=== PATIENT | female | born 2000 | race Caucasian/White ===

== ENCOUNTER → 2022-12-23 | Outpatient (CLI) | payer OTHER ==
[~2022-12-23] MED LIST: ALBU90OI INH; AMOX50SU PO; ANTOXYBENA BOTHEARS; Amoxicillin500 MG PO; Augmentin 500-1 EACH PO; Crutch1 EACH MISC; DEXT30SU PO; IBUP800 PO; MULTCH; Norco 10-325 T1 EACH PO; RXONDA4ODT MM
[2022-12-24 09:50] LABS: Candida species (DNA Probe) Positive (NEGATIVE); G. vaginalis (DNA Probe) Negative (NEGATIVE); T. vaginalis (DNA Probe) Negative (NEGATIVE)
[2022-12-28 17:08] LABS: CHLAMYDIA TRACHOMATIS, NAA Negative (Negative)
== END | disposition home or self-care (01) ==
LOC: LAB 14:22 → LAB SHORT 14:22
PROVIDERS: Advanced Practice Midwife
DX: Z01.419 Encounter for gynecological examination (general) (routine) without abnormal findings (principal); Z11.3 Encounter for screening for infections with a predominantly sexual mode of transmission; A59.01 Trichomonal vulvovaginitis
CPT/HCPCS: 87480; 87510; 87660